=== PATIENT | male | born 1940 | race Caucasian/White ===

== ENCOUNTER → 2017-07-28 | Outpatient (CLI) | payer MEDICARE, OTHER ==
[~2017-07-28] MED LIST: ALBUTEROL INHALER; ASPI81EC PO; ATOR20 PO; CALCA500CH PO; CALCIUM PO; CELE200 PO; CETI5 PO; CHLO500 PO; CHOL10002 PO; CHONDR PO; CIPR500 PO; COENZYME Q-1030 MG PO; COQ1050 MG PO; CYCL10 PO; DOCU100 PO; FINA5 PO; FISH1000 PO; GLUCOS PO; HYDACE5 PO; HYDR1TAB94 PO; HYZAAR PO; I-CAP VITAMIN PO; Icaps Plus1 EACH PO; LOSA50 PO; LOSARTAN POTAS100 MG PO; METO25ER PO; MSM PO; Multivitamin1 EAC1 PO; NEBI5 PO; NITR.4SL SL; Nitrostat0.4 MG SL; OMEP40CA12 PO; Omeprazole20 M1 PO; ROSU10TA PO; SILD25T PO; TRAM50 PO; VICODIN 5-3001 EACH PO; WARFARIN; ZYRTEC10 M3 PO
== END | disposition home or self-care (01) ==
LOC: LAB 12:03
DX: C67.9 Malignant neoplasm of bladder, unspecified (principal)
CPT/HCPCS: 88108

== ENCOUNTER → 2018-10-28 | Outpatient (CLI) | payer MEDICARE, OTHER | END | disposition home or self-care (01) | LOC: LAB SHORT 11:30 → PLD 11:30 | DX: C44.319 Basal cell carcinoma of skin of other parts of face (principal) | CPT/HCPCS: 88305 ==

== ENCOUNTER → 2018-11-29 | Outpatient (CLI) | payer MEDICARE, OTHER | END | disposition home or self-care (01) | LOC: PLD 14:14 → LAB SHORT 14:14 | DX: C44.310 Basal cell carcinoma of skin of unspecified parts of face (principal) | CPT/HCPCS: 88305 ==

== ENCOUNTER → 2020-07-06 | Outpatient (CLI) | payer MEDICARE, OTHER ==
[~2020-07-06] MED LIST changes: +ELIGARD45 MG; +ELIQUIS5 MG; +FURO40; +MOBIC15 MG; +TIZA4
[2020-07-06 17:53] LABS: Albumin, Blood 3.5 g/dL (3.4-5.0); Albumin/Globulin Ratio 1.1 (0.8-1.8); Bilirubin, Total 0.5 mg/dL (0.1-1.0); Bun/Creatinine Ratio 30.5 (12.0-20.0); Calcium, Blood 8.5 mg/dL (8.5-10.1); Creatinine, Blood 1.28 mg/dL (0.60-1.20); Globulin, Blood 3.2 g/dL (2.2-4.0); Phosphorus, Blood 2.3 mg/dL (2.5-4.9); Potassium, Blood 5.2 mmol/L (3.5-5.5); Total Protein, Blood 6.7 g/dL (6.4-8.2)
[2020-07-06 18:06] LABS: Percent Saturation 36.3 % (20.0-50.0)
== END | disposition home or self-care (01) ==
LOC: LAB SHORT 15:35
PROVIDERS: Internal Medicine Hematology & Oncology
DX: D50.9 Iron deficiency anemia, unspecified (principal); N18.9 Chronic kidney disease, unspecified
CPT/HCPCS: 80053; 82728; 83540; 83550; 84100

== ENCOUNTER 2020-08-10 11:22 | Day surgery (SDC) | payer MEDICARE, OTHER ==
[~2020-08-10] VITALS: Ht 177.8 cm; Wt 100.6 kg
== END 2020-08-10 14:21 | disposition home or self-care (01) ==
LOC: ORSCSDS 11:22
PROVIDERS: Internal Medicine Gastroenterology
PROC: 0DB68ZX Excision of Stomach, Via Natural or Artificial Opening Endoscopic, Diagnostic (ICD-10-PCS; principal; 2020-08-10 12:45)
DX: D50.9 Iron deficiency anemia, unspecified (principal); K29.70 Gastritis, unspecified, without bleeding; I48.0 Paroxysmal atrial fibrillation; R13.12 Dysphagia, oropharyngeal phase; Z87.11 Personal history of peptic ulcer disease; K21.9 Gastro-esophageal reflux disease without esophagitis; I10 Essential (primary) hypertension; E78.5 Hyperlipidemia, unspecified; G47.33 Obstructive sleep apnea (adult) (pediatric); E66.01 Morbid (severe) obesity due to excess calories; Z68.31 Body mass index [BMI] 31.0-31.9, adult; Z79.01 Long term (current) use of anticoagulants; Z79.899 Other long term (current) drug therapy
CPT/HCPCS: 88305; 88342; J2001; J2250; J2704; J7120

== ENCOUNTER → 2020-08-15 | Outpatient (CLI) | payer MEDICARE, OTHER | END | disposition home or self-care (01) | LOC: PLD 07:58 → LAB SHORT 07:58 | DX: L57.0 Actinic keratosis (principal) | CPT/HCPCS: 88305; 88342 ==

== ENCOUNTER → 2021-11-18 | Outpatient (CLI) | payer MEDICARE, OTHER | LOC: LAB SHORT 07:41 → PLD 07:41 → LAB 07:41 | DX: D04.4 Carcinoma in situ of skin of scalp and neck (principal) | CPT/HCPCS: 88305 ==

== ENCOUNTER → 2021-12-23 | Outpatient (CLI) | payer MEDICARE, OTHER | END | disposition home or self-care (01) | LOC: PLD 15:05 → LAB SHORT 15:05 | DX: D04.4 Carcinoma in situ of skin of scalp and neck (principal); B88.9 Infestation, unspecified; Z98.890 Other specified postprocedural states | CPT/HCPCS: 88305 ==

== ENCOUNTER → 2022-12-03 | Outpatient (CLI) | payer MEDICARE, OTHER | END | disposition home or self-care (01) | LOC: LAB SHORT 14:30 → PLD 14:30 | DX: C44.321 Squamous cell carcinoma of skin of nose (principal); C44.319 Basal cell carcinoma of skin of other parts of face | CPT/HCPCS: 88305 ==

== ENCOUNTER → 2023-11-17 | Outpatient (CLI) | payer MEDICARE, OTHER | END | disposition home or self-care (01) | LOC: LAB 05:40 → LAB SHORT 05:40 | DX: N18.30 Chronic kidney disease, stage 3 unspecified (principal); D63.1 Anemia in chronic kidney disease; N25.81 Secondary hyperparathyroidism of renal origin; E55.9 Vitamin D deficiency, unspecified; E29.1 Testicular hypofunction; R76.9 Abnormal immunological finding in serum, unspecified; R94.5 Abnormal results of liver function studies; R94.6 Abnormal results of thyroid function studies ==

== ENCOUNTER → 2024-07-05 | Outpatient (CLI) | payer MEDICARE, OTHER | LOC: LAB SHORT 13:46 → LAB 13:46 | DX: M79.671 Pain in right foot (principal); M79.672 Pain in left foot; N18.30 Chronic kidney disease, stage 3 unspecified; D75.1 Secondary polycythemia; N25.81 Secondary hyperparathyroidism of renal origin; E55.9 Vitamin D deficiency, unspecified; E29.1 Testicular hypofunction; R76.9 Abnormal immunological finding in serum, unspecified; R94.5 Abnormal results of liver function studies; R94.6 Abnormal results of thyroid function studies | CPT/HCPCS: 36415; 80053; 82248; 82607; 82728; 82746; 83540; 83550; 84100; 84153; 84443; 84550; 85018 ==

== ENCOUNTER 2024-09-19 06:32 | Day surgery (SDC) | payer MEDICARE, OTHER ==
[~2024-09-19] VITALS: Ht 180.3 cm; Wt 94.0 kg
[2024-09-19] VITALS (7 sets, daily range): BP systolic 145–158; BP diastolic 64–94
[~2024-09-19 06:32] MED LIST changes: +ALBU90OI INH; -CALCA500CH PO; -CHOL10002 PO; -ELIQUIS5 MG; +ELIQUIS5 MG PO; -FURO40; +FURO40 PO; +OMEP20ER PO; -Omeprazole20 M1 PO; +TIZANIDINE HCL2 M1 PO; +TUMS500 MG PO; +VITAMIN D310 MC4 PO
[2024-09-19] MEDS ORDERED: Heparin Sodium 1000 Units/ML 10ML MDV ONE (06:57)
[2024-09-19] MEDS ORDERED: CeFAZolin Sodium 1000 mg Vial ONE (06:57)
[2024-09-19] MEDS ORDERED: NS 1,000 ML IV ONE ×2 (06:58→07:44)
[2024-09-19] MEDS ORDERED: TIZA4 PO (07:01)
[2024-09-19] MEDS ORDERED: TRAM50 PO (07:06)
[2024-09-19] MEDS ORDERED: CeFAZolin Sodium 2,000 MG VIAL ONE (07:43)
[2024-09-19] MEDS ORDERED: NS 50 ML IV ONE (07:44)
[2024-09-19] MEDS ORDERED: Midazolam HCl 1MG / ML 2ML Vial ONE (08:22)
[2024-09-19] MEDS ORDERED: FentaNYL Citrate 50 MCG/ML 2 ML Injection ONE (08:22)
--- NOTE | 2024-09-19 10:27 | NUR ---
PT BACK TO RECOVERY ROOM. PT ALERT AND OREINTED. SPOUSE TO BEDSIDE. [employer] REP TO GIVE INSTRUCTIONS ON BEDSIDE MONITOR. ICE PACK TO L SHOULDER OVER PACEMAKER SITE. DRESSING CLEAN DRY AND INTACT.
--- NOTE | 2024-09-19 11:20 | NUR ---
PT UP TO BR, REMINDED NOT TO USE L ARM WHILE GETTING UP. PT AMBULATES TO BR WITH CANE AND SBA AND BACK TO W/C FOR XRAY.
--- NOTE | 2024-09-19 12:30 | NUR ---
DR GOMEZ IN TO UPDATE PT AND SPOUSE ON XRAY AND RESTRICTIONS. PT AND SPOUSE VERBALZIE D/C INSTRUCTIONS. PT ASSISTED TO W/C, SLING PLACED TO LEFT ARM. IV D/C CATHETER INTACT. VERBALZIE UNDERSTANDING TO RESUME ELIQUIS 09/22/24. DRESSING TO L SHOULDER C/D/I. PT WHEELED OUT TO SPOUSE CAR. D/C INSTRUCTIONS AND [employer] MONITOR IN HAND.
== END 2024-09-19 12:30 | disposition home or self-care (01) ==
LOC: MHTC 06:32
DX: I48.21 Permanent atrial fibrillation (principal); E78.5 Hyperlipidemia, unspecified; D50.9 Iron deficiency anemia, unspecified; I13.0 Hypertensive heart and chronic kidney disease with heart failure and stage 1 through stage 4 chronic kidney disease, or unspecified chronic kidney disease; I49.5 Sick sinus syndrome; I50.30 Unspecified diastolic (congestive) heart failure; N18.9 Chronic kidney disease, unspecified; G47.33 Obstructive sleep apnea (adult) (pediatric); Z79.01 Long term (current) use of anticoagulants; Z88.1 Allergy status to other antibiotic agents
CPT/HCPCS: 33207; 71046; 93005; 93010; 99152; 99153; C1786; C1894; C1898; J0690; J1644; J2250; J3010; J7030; J7040; Q9967

== ENCOUNTER → 2024-10-11 | Outpatient (CLI) | payer MEDICARE, OTHER ==
[~2024-10-11] MED LIST changes: +TIZA4 PO
[2024-10-11 12:20] LABS: Protein, Urine Quantitative 7.2 mg/dL (0.0-11.9)
[2024-10-11 12:22] LABS: Microalbumin, Urine Quant. 6.46 mg/L (0.000-20.000)
== END | disposition home or self-care (01) ==
LOC: LAB 05:58 → LAB SHORT 05:58
PROVIDERS: Internal Medicine Nephrology
DX: N18.30 Chronic kidney disease, stage 3 unspecified (principal); D63.1 Anemia in chronic kidney disease; N25.81 Secondary hyperparathyroidism of renal origin; E55.9 Vitamin D deficiency, unspecified; E78.00 Pure hypercholesterolemia, unspecified; R76.9 Abnormal immunological finding in serum, unspecified; R94.5 Abnormal results of liver function studies; R94.6 Abnormal results of thyroid function studies
CPT/HCPCS: 82043; 82570; 84156